=== PATIENT | female | born 1975 | race Caucasian/White ===

== ENCOUNTER 2020-06-22 13:06 | Inpatient (IN) | payer SELFPAY ==
[2020-06-22 13:22] VITALS: BP 105/59; PULSE 91; RESP 18; TEMP 36.4; O2SAT 99; BMI 20.5
[2020-06-22 15:54] LABS: Add Urine Microscopic? NO
[2020-06-22 16:25] LABS: Bilirubin Urine Neg (Negative); Blood Urine Neg (Negative); Glucose Urine UA Norm (Normal); Ketones Urine Negative (Negative); Leukocyte Esterase Urine Negative (Negative); Nitrate Urine Negative (Negative); Protein Urine Neg (Negative); Specific Gravity, Urine 1.005 (1.005-1.030); Urine Appearance Clear (CLEAR); Urine Color Yellow (Yellow); Urobilinogen Urine Norm (Negative)
[2020-06-22 16:50] LABS: HCG Qualitative Urine. Negative (Negative)
[2020-06-22 16:56] LABS: Amphetamines Screen Urine Positive (Negative); Barbiturates Screen Urine Negative (Negative); Benzodiazepines Screen Urine Negative (Negative); Cocaine Screen Urine Negative (Negative); Opiate Screen Urine Negative (Negative); PCP Screen Urine Negative (Negative); THC Screen Urine Positive (Negative)
[2020-06-22 17:29] VITALS: RESP 17
[2020-06-22 18:10] LABS: Basophils # 0.1 10^3/uL (0.0-0.1); Basophils % 1.9 %; Eosinophils # 0.3 10^3/uL (0.0-0.8); Eosinophils % 4.3 %; Hematocrit 33.4 % (37.0-47.0); Lymphocytes # 2.5 10^3/uL (0.8-4.8); Lymphocytes % 34.1 %; Mean Corpuscular HGB Conc 29.9 g/dL (30.0-36.0); Mean Corpuscular Hemoglobin 20.1 pg (28.0-34.0); Mean Corpuscular Volume 67.1 fL (81-99); Mean Platelet Volume 11.7 fL (7.4-10.4); Monocytes # 0.5 10^3/uL (0.2-0.9); Neutrophils # 3.77 10^3/uL (1.8-7.7); Neutrophils % 52.6 %; Nucleated Red Blood Cells % 0.3 %; Platelet Count 407 10^3/cmm (130-400); Red Blood Count 4.98 10^6/uL (4.1-5.3); Red Cell Distribution Width 17.1 % (12.1-15.1); White Blood Count 7.2 10^3/uL (4.0-10.0)
[2020-06-22 18:45] LABS: Slide Review Slide Review Perform
[2020-06-22 19:06] VITALS: RESP 18
[2020-06-22 19:10] LABS: Alanine Aminotransferase 11 U/L (0-33); Albumin Level 3.9 g/dL (3.5-5.2); Alkaline Phosphatase 94 IU/L (35-105); Anion Gap 13.6 (5-19); Aspartate Amino Transferase 12 U/L (0-32); Blood Urea Nitrogen 9 mg/dL (6-20); Carbon Dioxide 25 mmol/L (22-29); Chloride 103 mmol/L (98-107); Globulin 2.1 g/dL (1.3-4.6); Glomerular Filtration Rate 134.7 mL/min (90-130); Glucose 102 mg/dL (65-115); Osmolality Calculated 285 mOsm/kg (285-295); Potassium 3.6 mmol/L (3.5-5.1); Sodium 138 mmol/L (136-145); Thyroid Stimulating Hormone 0.82 uIU/mL (0.27-4.20); Total Bilirubin 0.4 mg/dL (0.15-1.2)
[2020-06-22 19:35] LABS: Acetaminophen < 5.0 ug/mL (10-30); Alcohol Level < 10 mg/dL (0-10); Salicylate < 0.3 mg/dL (3-10)
[2020-06-22 20:00] VITALS: BP 106/69; PULSE 71; RESP 16; O2SAT 99
[2020-06-22 20:55] VITALS: BP 106/69; O2SAT 97
[2020-06-22 21:42] VITALS: BP 113/76; PULSE 79; RESP 18; TEMP 36.9; O2SAT 97
[2020-06-22] MEDS: pneumococcal (23 valent) SDV 0.5 mL IM (21:43)
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
[2020-06-22] MEDS: acetaminophen 325 mg Tablet 650 MG PO (21:48)
[2020-06-22] MEDS: nicotine 2 mg Gum BUCCAL (21:48)
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
--- NOTE | 2020-06-23 04:08 | PC.NURSE ---
flu vaccine given FluvaxQuad 60mcg/0.5ml given in right deltoid IM lot number [id number] exp 02/01/21
--- NOTE | 2020-06-23 04:10 | PC.NURSE ---
Pneumonia vaccine given [id number] injection 0.5ml given IM Left Deltoid Lot number [id number]
[2020-06-23 06:00] VITALS: BP 112/70; PULSE 65; RESP 16; TEMP 36.8; O2SAT 96
[2020-06-23 14:00] VITALS: BP 93/64; PULSE 74; RESP 18; TEMP 37.1; O2SAT 97
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
[2020-06-23 20:09] VITALS: BP 85/49; PULSE 66; RESP 17; TEMP 36.5; O2SAT 97
[2020-06-24 06:00] VITALS: BP 105/68; PULSE 62; RESP 16; TEMP 36.9; O2SAT 96
[2020-06-24] MEDS: sertraline 50 mg Tablet PO (09:44)
[2020-06-24 13:35] VITALS: BP 104/65; PULSE 70; RESP 18; TEMP 37.1; O2SAT 97
[2020-06-24 22:00] VITALS: BP 101/67; PULSE 85; RESP 18; TEMP 36.4; O2SAT 96
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
[2020-06-25 06:00] VITALS: BP 115/59; PULSE 83; RESP 17; TEMP 36.9; O2SAT 96
[2020-06-25] MEDS: sertraline 50 mg Tablet PO (08:07)
[2020-06-25] MEDS: nicotine 2 mg Gum BUCCAL ×2 (13:15→15:17)
[2020-06-25 13:30] VITALS: BP 112/71; PULSE 96; RESP 18; TEMP 37.1
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
[2020-06-25 20:59] VITALS: BP 116/76; PULSE 83; RESP 18; TEMP 37.1; O2SAT 97
[2020-06-26 06:00] VITALS: BP 108/75; PULSE 76; RESP 17; TEMP 37; O2SAT 96
[2020-06-26] MEDS: acetaminophen 325 mg Tablet 650 MG PO (08:20)
[2020-06-26] MEDS: sertraline 50 mg Tablet PO (08:20)
[2020-06-26 13:34] VITALS: BP 103/66; PULSE 84; RESP 18; TEMP 37.1; O2SAT 96
--- NOTE | 2020-06-26 14:14 | PM.NPN ---
Subjective NPU Subjective: Interval history: Karen presented today reporting that she is feeling a little better. We discussed the risk benefits and alternatives of increasing her Zoloft 200 mg p.o. every morning in the morning. Additionally she did fill out the paperwork for [facility] and we discussed working with the treatment team in the morning to look at getting her an interview and hopefully getting her up there at the beginning of the week. She reports she is eating okay and sleeping better. Mental Status Exam MSE Comments: This is an underweight white female with limited dress, grooming and eye contact. No abnormal movements except for resolving mild psychomotor retardation. Mostly cooperative with exam in no acute distress. Speech was more normal rate and volume. Mood described as better, affect congruent. Thought process organized. Thought content: Patient denied any suicidal or homicidal ideation, delusions reported or noted, she denied any auditory or visual hallucinations. Attention and concentration were intact and memory appeared reliable but none were formally tested. She is alert and oriented x3. Insight and judgment are fair, but improving, impulse control is limited, but improving. Vitals/I&O/Wt Last Vital Signs Temp 98.6 F 06/26/20 05:29 Pulse 76 06/26/20 05:29 Resp 17 06/26/20 05:29 BP 108/78 06/26/20 05:29 Pulse Ox 96 06/26/20 05:29 Weight last 48 hrs Weight 54.431 kg Data NPU : 06/22/20 17:58 06/22/20 17:58 A&P Additional A&P Information (1) Polysubstance abuse: (2) Depression: (3) PTSD (post-traumatic stress disorder): (4) Anxiety: This is a 45-year-old white female with a long history of trauma, active addiction, depression and anxiety who presents off medication with recent traumatic events. 1. Continue current medication. 2. Continue every 15 minute checks for safety. 3. Encourage individual, group and milieu therapy. 4. Encourage follow-up at a sober living treatment provider at the highest level of care to which she will commit. Involuntary Hold Information 96 Hour Hold: 96 Hour Involuntary Admission: No Attestations NPU Medical Necessity Statement*: Inpatient hospitalization is medically necessary and the clinically appropriate intervention at this time. We will initiate medication/monitor medications and make changes as indicated. Likely length of stay 1-3 days. Coding Level of Care Code Acute Vat Tender for Chg Jr
[2020-06-26] MEDS: nicotine 2 mg Gum BUCCAL ×2 (15:30→18:10)
[2020-06-26 19:52] VITALS: BP 117/71; PULSE 67; RESP 17; TEMP 37.1; O2SAT 99
[2020-06-26] MEDS: trazodone 50 mg Tablet PO (20:03)
[2020-06-26] MEDS: hyDROXYzine 25 mg Capsule 50 MG PO (20:03)
[2020-06-27 05:29] VITALS: BP 108/67; PULSE 77; RESP 16; TEMP 37.2; O2SAT 97
[2020-06-27] MEDS: sertraline 100 mg Tablet PO (08:28)
--- NOTE | 2020-06-27 09:47 | PM.NPN ---
Subjective NPU Subjective: Interval history: Patient reports that she is doing well and wants to go home. She complained of excessive sedation in the morning most likely due to her trazodone at bedtime. She is awaiting word on whether she has a place at a [facility]. She has arranged for transportation from her father. Mental Status Exam MSE Comments: This is an underweight white female with limited dress, grooming and eye contact. No abnormal movements except for resolving mild psychomotor retardation. Mostly cooperative with exam in no acute distress. Speech was normal rate and volume. Mood described as better, affect congruent. Thought process organized. Thought content: Patient denied any suicidal or homicidal ideation, delusions reported or noted, she denied any auditory or visual hallucinations. Attention and concentration were intact and memory appeared reliable but none were formally tested. She is alert and oriented x3. Insight and judgment are adequate for safety, impulse control is improved. Cognition: Patient Appearance: Appropriate Level of Consciousness: Awake, Alert, Appropriate and Follows Commands Patient Cognition Impaired: No Ability to Follow Directions: Excellent Patient Orientation (long list): Person, Place, Time and Name Comprehension Ability: No Impairment Hallucination Type: None Delusion Description: Not Present Thought Process: Appropriate Affect: Affect Description: Calm Behavior: Patient Behavior: Cooperative Speech Pattern: Clear Vitals/I&O/Wt Last Vital Signs Temp 98.9 F 06/27/20 05:29 Pulse 77 06/27/20 05:29 Resp 16 06/27/20 05:29 BP 108/67 06/27/20 05:29 Pulse Ox 97 06/27/20 05:29 Weight last 48 hrs Weight 54.431 kg Data NPU : 06/22/20 17:58 06/22/20 17:58 A&P Assessment and plan (1) Polysubstance abuse: Status: Chronic (2) Depression: Status: Acute Qualifiers: Depression Type: unspecified Qualified Code(s): F32.9 - Major depressive disorder, single episode, unspecified (3) PTSD (post-traumatic stress disorder): Status: Chronic (4) Anxiety: Status: Chronic Additional A&P Information (1) Polysubstance abuse: (2) Depression: (3) PTSD (post-traumatic stress disorder): (4) Anxiety: This is a 45-year-old white female with a long history of trauma, active addiction, depression and anxiety who presents off medication with recent traumatic events. 1. Continue current medication. Trazodone will be administered earlier in the evening to reduce daytime sedation. 2. Continue every 15 minute checks for safety. 3. Encourage individual, group and milieu therapy. 4. Encourage follow-up at a sober living treatment provider at the highest level of care to which she will commit. Involuntary Hold Information 96 Hour Hold: 96 Hour Involuntary Admission: No Attestations NPU Medical Necessity Statement*: Patient will remain in the hospital another 2-4 nights for assessment of medication efficacy and tolerability. Coding Level of Care Code Acute Certified Income Tax Preparer for g Fwd Diagnoses Polysubstance abuse F19.10 Depression F32.9 Depression Type: unspecified PTSD (post-traumatic stress disorder) F43.10 Anxiety F41.9
[2020-06-27] MEDS: nicotine 2 mg Gum BUCCAL ×4 (10:59→18:12)
[2020-06-27 14:00] VITALS: BP 113/72; PULSE 80; RESP 20; TEMP 36.9; O2SAT 96
[2020-06-27] MEDS: trazodone 50 mg Tablet PO (17:51)
[2020-06-27] MEDS: hyDROXYzine 25 mg Capsule 50 MG PO (19:27)
[2020-06-27 19:34] VITALS: BP 106/68; PULSE 91; RESP 17; TEMP 36.9; O2SAT 99
--- NOTE | 2020-06-27 19:38 | PC.NURSE ---
The patient said she has anxiety tonight she rates at 7 on a 10 high scale. She is requesting prn Vistaril to treat the symptoms.
[2020-06-28 06:00] VITALS: BP 103/65; PULSE 68; RESP 15; TEMP 36.4; O2SAT 97
[2020-06-28] MEDS: sertraline 100 mg Tablet PO (08:21)
[2020-06-28] MEDS: nicotine 2 mg Gum BUCCAL ×2 (09:13→11:56)
--- NOTE | 2020-06-28 11:45 | P.PN_ITS ---
Subjective NPU Subjective: Interval history: Patient is now established a plan to go to a rehabilitation facility that requires preadmission laboratories including a tuberculosis test that will take 3 days. She is okay with that. Her main complaint is 1 of nicotine withdrawal. We discussed her history of being treated with naltrexone. We also discussed her history of being treated for depression. She revealed that she has had multiple seizures in the past. The hospital record does not reflect that. However until that is cleared up we cannot initiate treatment with Wellbutrin. Mental Status Exam MSE Comments: Discharge Mental Status Exam: Appearance: hygiene is good; no gross neurological deficits., gait is unremarkable; AIMS=0 Speech: Speech is of normal rate and rhythm and easily understood. Thought processes: Thought processes are abstract. Judgment is adequate for safety. Associations: intact Psychotic processes: There is no indication of guarding or paranoia. There is no attention to the internal stimuli. Auditory and visual hallucinations are denied. Judgment: Insight is fair. Problem solving skills are adequate for safety. Orientation: The patient is oriented to person, place time and situation. Memory: no deficits noted in immediate, intermediate, or remote spheres. Attention: The patient is alert and interpersonally engaged. Language: Verbalizations are coherent. Fund of knowledge: Fund of knowledge is adequate. Affect/Mood: Affect is consistent with a euthymic mood. denied suicidal ideation Affective range is appropriate. Psychosis: perception unimpaired except through cognitive distortion; reality testing intact. Cognition: Patient Appearance: Appropriate Level of Consciousness: Awake, Alert, Appropriate and Follows Commands Patient Cognition Impaired: No Ability to Follow Directions: Excellent Patient Orientation (long list): Person, Place, Time and Name Comprehension Ability: No Impairment Hallucination Type: None Delusion Description: Not Present Thought Process: Appropriate Affect: Affect Description: Appropriate and Calm Behavior: Patient Behavior: Appropriate and Cooperative Speech Pattern: Appropriate and Clear Vitals/I&O/Wt Last Vital Signs Temp 97.6 F 06/28/20 06:00 Pulse 68 06/28/20 06:00 Resp 15 06/28/20 06:00 BP 103/65 06/28/20 06:00 Pulse Ox 97 06/28/20 06:00 06/27/20 06/28/20 06/28/20 22:59 06:59 14:59 Intake Total 240 / 240 Balance 240 / 240 Data NPU : 06/22/20 17:58 06/22/20 17:58 A&P Assessment and plan (1) Polysubstance abuse: Status: Chronic (2) Depression: Status: Acute Qualifiers: Depression Type: unspecified Qualified Code(s): F32.9 - Major depressive disorder, single episode, unspecified (3) PTSD (post-traumatic stress disorder): Status: Chronic (4) Anxiety: Status: Chronic Additional A&P Information (1) Polysubstance abuse: (2) Depression: (3) PTSD (post-traumatic stress disorder): (4) Anxiety: This is a 45-year-old white female with a long history of trauma, active addiction, depression and anxiety who presents off medication with recent traumatic events. 1. Continue current medication. Trazodone will be administered earlier in the evening to reduce daytime sedation. 2. Continue every 15 minute checks for safety. 3. Encourage individual, group and milieu therapy. 4. Encourage follow-up at a sober living treatment provider at the highest level of care to which she will commit. Hospital day #6:Patient is now established a plan to go to a rehabilitation facility that requires preadmission laboratories including a tuberculosis test that will take 3 days. She is okay with that. Her main complaint is 1 of nicotine withdrawal. We discussed her history of being treated with naltrexone. We also discussed her history of being treated for depression. She revealed that she has had multiple seizures in the past. The hospital record does not reflect that. However until that is cleared up we cannot initiate treatment with Wellbutrin. Plan: Will restart nicotine patches. We will also initiate naltrexone 50 mg daily for craving both for the nicotine and her substance use. We will also initiate Lamictal 25 mg daily that may provide assistance both in the depression, mood stabilization, and her history of seizures. Laboratories ordered included TB skin test, hepatitis panel, sexually transmitted disease panel and HIV test. Involuntary Hold Information 96 Hour Hold: 96 Hour Involuntary Admission: No Attestations NPU Medical Necessity Statement*: Patient will remain in the hospital another 2-4 nights for assessment of medication efficacy and tolerability. Coding Level of Care Code Acute Marble Ceiling Installer for Kaitlynn Norris Diagnoses Polysubstance abuse F19.10 Depression F32.9 Depression Type: unspecified PTSD (post-traumatic stress disorder) F43.10 Anxiety F41.9
[2020-06-28] MEDS: naltrexone hcl 50 mg Tablet PO (11:56)
[2020-06-28] MEDS: lamoTRIgine 25 mg Tablet PO (11:56)
[2020-06-28] MEDS: nicotine 21 mg Patch 1 PATCH TRANSDERMA (13:43)
[2020-06-28 14:00] VITALS: BP 121/76; PULSE 85; RESP 20; TEMP 36.9; O2SAT 97
[2020-06-28 15:23] LABS: Rapid Plasma Reagin Syphilis Nonreactive (Nonreactive)
[2020-06-28 15:34] LABS: HIV 1 & 2 Antibody Non-Reactive (Non-Reactiv); HIV 1 & 2 Antigen Non-Reactive (Non-Reactiv)
[2020-06-28 15:35] LABS: Hepatitis A Antibody IgM Non-Reactive (Nonreactive); Hepatitis B Core AB, Total Non-Reactive (Nonreactive); Hepatitis B Surface AB 5.5 (0-8.5); Hepatitis B Surface Antigen Non-Reactive (Nonreactive); Hepatitis C Virus Antibody Non-Reactive (Nonreactive)
[2020-06-28] MEDS: acetaminophen 325 mg Tablet 650 MG PO (19:10)
--- NOTE | 2020-06-28 19:35 | PC.NURSE ---
The patient reported having anxiety with intensity at 8 on a 10 high scale. The patient appeared somewhat worried. she requested Vistaril to help reduce the anxiety.
[2020-06-28] MEDS: hyDROXYzine 25 mg Capsule 50 MG PO (20:17)
[2020-06-28] MEDS: trazodone 50 mg Tablet PO (20:17)
[2020-06-28 22:00] VITALS: BP 119/79; PULSE 89; RESP 18; TEMP 36.9; O2SAT 96
--- NOTE | 2020-06-28 22:45 | PC.NURSE ---
side effect Revia/Lamictal Pt reports feeling as if her heart was racing about 30 minutes of receiving her first dose of revia and lamictal this afternoon. She did state that if that happened again she would consult the nurse on duty. She is not symptomatic at this time.
--- NOTE | 2020-06-29 00:29 | PC.NURSE ---
luisana peraza Pt requested to shave and has permission to do so using an electric razor under supervision. She declined to use it tonight but would like to shave in the morning.
--- NOTE | 2020-06-29 00:54 | PC.NURSE ---
REMOVED NICOTINE PATCH @2100
[2020-06-29 06:00] VITALS: BP 104/64; PULSE 82; RESP 15; TEMP 37; O2SAT 96
[2020-06-29] MEDS: sertraline 100 mg Tablet PO (09:24)
[2020-06-29] MEDS: lamoTRIgine 25 mg Tablet PO (09:24)
[2020-06-29] MEDS: naltrexone hcl 50 mg Tablet PO (09:24)
[2020-06-29] MEDS: nicotine 21 mg Patch 1 PATCH TRANSDERMA (10:04)
--- NOTE | 2020-06-29 10:07 | PM.NPN ---
Subjective NPU Subjective: Interval history: Patient reports that she slept better last night with the addition of trazodone. She has not had an adverse reaction to the naltrexone. She is back on the nicotine patch and that is less of a problem. She however is impatient about her determination of placement and is threatening to leave AGAINST MEDICAL ADVICE. . Mental Status Exam MSE Comments: Discharge Mental Status Exam: Appearance: hygiene is good; no gross neurological deficits., gait is unremarkable; AIMS=0 Speech: Speech is of normal rate and rhythm and easily understood. Thought processes: Thought processes are abstract. Judgment is adequate for safety. Associations: intact Psychotic processes: There is no indication of guarding or paranoia. There is no attention to the internal stimuli. Auditory and visual hallucinations are denied. Judgment: Insight is fair. Problem solving skills are adequate for safety. Orientation: The patient is oriented to person, place time and situation. Memory: no deficits noted in immediate, intermediate, or remote spheres. Attention: The patient is alert and interpersonally engaged. Language: Verbalizations are coherent. Fund of knowledge: Fund of knowledge is adequate. Affect/Mood: Affect is consistent with a euthymic mood. denied suicidal ideation Affective range is appropriate. Psychosis: perception unimpaired except through cognitive distortion; reality testing intact. Cognition: Patient Appearance: Appropriate Level of Consciousness: Awake, Alert, Appropriate and Follows Commands Patient Cognition Impaired: No Ability to Follow Directions: Excellent Patient Orientation (long list): Person, Place, Time and Name Comprehension Ability: No Impairment Hallucination Type: None Delusion Description: Not Present Thought Process: Appropriate Affect: Affect Description: Appropriate Behavior: Patient Behavior: Appropriate Speech Pattern: Appropriate Vitals/I&O/Wt Last Vital Signs Temp 98.6 F 06/29/20 06:00 Pulse 82 06/29/20 06:00 Resp 15 06/29/20 06:00 BP 104/64 06/29/20 06:00 Pulse Ox 96 06/29/20 06:00 06/28/20 06/29/20 06/29/20 22:59 06:59 14:59 Intake Total 240 / 600 240 / 240 Balance 240 / 600 240 / 240 Data NPU : 06/22/20 17:58 06/22/20 17:58 A&P Assessment and plan (1) Polysubstance abuse: Status: Chronic (2) Depression: Status: Acute Qualifiers: Depression Type: unspecified Qualified Code(s): F32.9 - Major depressive disorder, single episode, unspecified (3) PTSD (post-traumatic stress disorder): Status: Chronic (4) Anxiety: Status: Chronic Additional A&P Information (1) Polysubstance abuse: (2) Depression: (3) PTSD (post-traumatic stress disorder): (4) Anxiety: This is a 45-year-old white female with a long history of trauma, active addiction, depression and anxiety who presents off medication with recent traumatic events. 1. Continue current medication. Trazodone will be administered earlier in the evening to reduce daytime sedation. 2. Continue every 15 minute checks for safety. 3. Encourage individual, group and milieu therapy. 4. Encourage follow-up at a sober living treatment provider at the highest level of care to which she will commit. Hospital day #6:Patient is now established a plan to go to a rehabilitation facility that requires preadmission laboratories including a tuberculosis test that will take 3 days. She is okay with that. Her main complaint is 1 of nicotine withdrawal. We discussed her history of being treated with naltrexone. We also discussed her history of being treated for depression. She revealed that she has had multiple seizures in the past. The hospital record does not reflect that. However until that is cleared up we cannot initiate treatment with Wellbutrin. Plan: Will restart nicotine patches. We will also initiate naltrexone 50 mg daily for craving both for the nicotine and her substance use. We will also initiate Lamictal 25 mg daily that may provide assistance both in the depression, mood stabilization, and her history of seizures. Laboratories ordered included TB skin test, hepatitis panel, sexually transmitted disease panel and HIV test. Hospital day #7: Patient is not an imminent risk to self or others. She is tolerated initiation of naltrexone. Laboratory Tests 06/28/20 06/28/20 06/28/20 10:28 10:28 10:28 RPR Nonreactive Hepatitis A IgM Ab Non-reactive Hep Bs Antigen Non-reactive Hep Bs Antibody 5.5 Hep B Core Total Ab Non-reactive Hepatitis C Antibody Non-reactive Herpes Simplex Source HIV 1&2 Ab & HIV 1 Ag Non-reactive HIV 1&2 Antibody Non-reactive TB (QFT) Gold In Tube 06/28/20 06/28/20 10:28 16:42 RPR Hepatitis A IgM Ab Hep Bs Antigen Hep Bs Antibody Hep B Core Total Ab Hepatitis C Antibody Herpes Simplex Source Pending HIV 1&2 Ab & HIV 1 Ag HIV 1&2 Antibody TB (QFT) Gold In Tube Pending Plan: Awaiting placement at the extended rehab program. Should the patient decide to leave AGAINST MEDICAL ADVICE, she is permitted to make that decision. Involuntary Hold Information 96 Hour Hold: 96 Hour Involuntary Admission: No Attestations NPU Medical Necessity Statement*: Patient will remain in the hospital another 2-4 nights for assessment of medication efficacy and tolerability. Coding Level of Care Code Acute Solid Waste Disposal Manager for g Fwd Diagnoses Polysubstance abuse F19.10 Depression F32.9 Depression Type: unspecified PTSD (post-traumatic stress disorder) F43.10 Anxiety F41.9
[2020-06-29 10:28] LABS: Hepatitis A Antibody Total REACTIVE (NON-REACTIVE)
[2020-06-29 10:48] VITALS: BP 104/64; PULSE 82; RESP 15; TEMP 37; O2SAT 96
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
[2020-07-01 11:58] LABS: Quantiferon Mitogen 9.43 IU/mL; Quantiferon Nil 0.08 IU/mL; Quantiferon Plus TB1 0.03 IU/mL; Quantiferon Plus TB2 0.03 IU/mL; Quantiferon TB Gold NEGATIVE (NEGATIVE)
[2020-07-03 14:43] LABS: HSV 1 DNA NOT DETECTED; HSV 2 DNA NOT DETECTED; HSV Source SERUM
== END 2020-06-29 14:34 | disposition left against medical advice (07) | DRG 881 ==
LOC: ER 13:33 → NP 20:28
PROVIDERS: Psychiatry & Neurology Psychiatry; Admitting Provider Psychiatry & Neurology Psychiatry; Emergency Provider Family Medicine; Visit Provider Psychiatry & Neurology Psychiatry
DX: F32.9 Major depressive disorder, single episode, unspecified (principal); F15.10 Other stimulant abuse, uncomplicated; F43.12 Post-traumatic stress disorder, chronic; F41.9 Anxiety disorder, unspecified; Z53.29 Procedure and treatment not carried out because of patient's decision for other reasons
CPT/HCPCS: 12345; 36415; 80053; 80306; 80307; 81003; 81025; 84443; 85025; 86480; 86592; 86705; 86706; 86708; 86709; 86803; 87340; 87491; 87530; 87591; 87806; 90471; 90686; 90732; 99284

== ENCOUNTER 2020-07-03 05:24 | Emergency (ER) | payer MEDICAID, SELFPAY ==
[2020-07-03 05:25] VITALS: BP 111/77; PULSE 79; RESP 16; TEMP 36.8; O2SAT 97; BMI 22.3
--- NOTE | 2020-07-03 05:29 | W.ED.GENADLT ---
Documented by User: Ladarius Poe MD 07/03/20 05:54 HPI - General Adult General: Chief complaint: General Medical Stated complaint: MEDICAL SCREENING Time Seen by Provider: 07/03/20 05:28 Source: patient and EMS Mode of arrival: EMS History of Present Illness: HPI narrative: 45-year-old female who is a history of drug use. Patient boyfriend called EMS tonight and EMS states that they were in an argument when they arrived. She is not given the much history. She states to me she just does not feel well and has felt nauseated. She appears under the influence of alcohol or drugs at this time. She denies any suicidal homicidal ideations. Denies any fever or pain. Associated symptoms: Reports nausea; Deny chest pain, dyspnea, headache(s) or rash Review of Systems Const: Denies: fever(s), chills, body aches or change in appetite Eyes: Denies: blurry vision or eye discomfort ENMT: Denies: throat pain or dental pain Card: Denies: chest pain Resp: Denies: dyspnea GI: Reports: nausea : Denies: dysuria Musc: Denies: neck pain or back pain Skin/Breast: Denies: rash Neuro: Denies: headache(s) Psych: Denies: depression Todd/Lymph: Denies: easy bruising All/Imm: Denies: urticaria Physical Exam Const: COMMON NORMALS: no acute distress and patient oriented x3 GENERAL APPEARANCE: disheveled HENMT: COMMON NORMALS: normocephalic and atraumatic HEAD & SCALP: normocephalic and atraumatic Eye: COMMON NORMALS: Equal, round and reactive pupils present and EOMs intact bilaterally PUPIL: Yes Equal, round and reactive pupils present Neck/C-Spine: COMMON NORMALS: full ROM and supple Chest: COMMONS NORMALS: normal inspection of the chest and normal palpation of entire chest wall Resp: COMMON NORMALS: normal respiratory effort, No retractions, No use of accessory muscles and clear to auscultation bilaterally AUSCULTATION: clear to auscultation bilaterally Cardio: COMMON NORMALS: regular rate, regular rhythm and No murmurs present (Cardio) RATE: regular rate RHYTHM: regular rhythm GI: COMMON NORMALS: Normal to inspection, nondistended, normoactive bowel sounds present, Soft to palpation, non-tender and no masses PALPATION: Yes Soft to palpation Extremity: COMMON NORMALS: normal to inspection and full ROM Neuro: COMMON NORMALS: patient oriented x3, moves all extremities and no focal motor deficits Psych: COMMON NORMALS: mental status grossly normal, Normal thought process present and cooperative ATTITUDE: Yes bizarre THOUGHT PROCESS: Normal thought process present Skin: COMMON NORMALS: no rashes or lesions noted and no wounds GENERAL SKIN EXAM: no rashes or lesions noted Course Vital Signs: Vital signs: Vital Signs Temperature 98.2 F 07/03/20 05:25 Pulse Rate 76 07/03/20 06:22 Respiratory Rate 18 07/03/20 06:22 Blood Pressure 116/78 07/03/20 06:22 Pulse Oximetry 96 07/03/20 06:22 MDM - General Adult MDM Narrative: Medical decision making narrative: Patient presents here with complaints of nausea at this time. Full history is difficult from patient she states she just does not feel well and feels nauseous. Will check blood work I believe she is likely under the influence of drugs. Patient is suicidal homicidal. Patient's care turned over to Dr. Ruelas at this time. Lab Data: Labs: Lab Results 07/03/20 07/03/20 07/03/20 Range/Units 05:50 05:50 05:50 WBC 5.9 (4.0-10.0) 10^3/ uL RBC 5.14 (4.1-5.3) 10^6/u L Hgb 10.3 L (11.5-15.3) g/dL Hct 34.2 L (37.0-47.0) % MCV 66.5 L (81-99) fL MCH 20.0 L (28.0-34.0) pg MCHC 30.1 (30.0-36.0) g/dL RDW 17.6 H (12.1-15.1) % Plt Count 507 H (130-400) 10^3/c mm MPV 11.4 H (7.4-10.4) fL Neut % (Auto) 60.0 % Lymph % (Auto) 23.1 % Walsh % (Auto) 8.3 % Eos % (Auto) 6.5 % Baso % (Auto) 1.9 % Neut # (Auto) 3.53 (1.8-7.7) 10^3/u L Lymph # (Auto) 1.4 (0.8-4.8) 10^3/u L Walsh # (Auto) 0.5 (0.2-0.9) 10^3/u L Eos # (Auto) 0.4 (0.0-0.8) 10^3/u L Baso # (Auto) 0.1 (0.0-0.1) 10^3/u L Nucleated RBC % (a uto) 0.5 % Nucleated RBCs # 0.0 /100WBC Sodium 138 (136-145) mmol/L Potassium 4.1 (3.5-5.1) mmol/L Chloride 106 (98-107) mmol/L Carbon Dioxide 23 (22-29) mmol/L Anion Gap 13.1 (5-19) BUN 9 (6-20) mg/dL Creatinine 0.4 L (0.5-0.9) mg/dL GFR Calculation 174.2 H (90-130) mL/min Glucose 101 (65-115) mg/dL Calculated Osmolal ity 285 (285-295) mOsm/k g Calcium 9.1 (8.5-10.5) mg/dL Magnesium (1.7-2.3) mg/dL Total Bilirubin 0.7 (0.15-1.2) mg/dL AST 22 (0-32) U/L ALT 107 H (0-33) U/L Alkaline Phosphata se 121 H (35-105) IU/L Creatine Kinase 82 (26-192) U/L Total Protein 6.6 (6.6-8.7) g/dL Albumin 4.2 (3.5-5.2) g/dL Globulin 2.4 (1.3-4.6) g/dL Lipase 66 H (13-60) U/L HCG, Qual (Negative) Urine Color (Yellow) Urine Appearance (CLEAR) Urine pH (5-7) Ur Specific Gravit y (1.005-1.030) Urine Protein (Negative) Urine Glucose (UA) (Normal) Urine Ketones (Negative) Urine Blood (Negative) Urine Nitrate (Negative) Urine Bilirubin (Negative) Urine Urobilinogen (Negative) mg/dL Ur Leukocyte Adele ase (Negative) Salicylates < 0.3 L (3-10) mg/dL Urine Opiates Scre en (Negative) ng/mL Acetaminophen < 5.0 L (10-30) ug/mL Ur Barbiturates Sc reen (Negative) ng/mL Ur Phencyclidine S crn (Negative) ng/mL Ur Amphetamines Sc reen (Negative) ng/mL U Benzodiazepines Scrn (Negative) ng/mL Urine Cocaine Scre en (Negative) ng/mL U Marijuana (THC) Screen (Negative) ng/mL Ethyl Alcohol < 10 (0-10) mg/dL Influenza Type A A g (Negative) Influenza Type B A g (Negative) SARS-CoV-2 Ag (Rap id) (Negative) 07/03/20 07/03/20 07/03/20 Range/Units 05:50 05:50 06:37 WBC (4.0-10.0) 10^3/ uL RBC (4.1-5.3) 10^6/u L Hgb (11.5-15.3) g/dL Hct (37.0-47.0) % MCV (81-99) fL MCH (28.0-34.0) pg MCHC (30.0-36.0) g/dL RDW (12.1-15.1) % Plt Count (130-400) 10^3/c mm MPV (7.4-10.4) fL Neut % (Auto) % Lymph % (Auto) % Walsh % (Auto) % Eos % (Auto) % Baso % (Auto) % Neut # (Auto) (1.8-7.7) 10^3/u L Lymph # (Auto) (0.8-4.8) 10^3/u L Walsh # (Auto) (0.2-0.9) 10^3/u L Eos # (Auto) (0.0-0.8) 10^3/u L Baso # (Auto) (0.0-0.1) 10^3/u L Nucleated RBC % (a uto) % Nucleated RBCs # /100WBC Sodium (136-145) mmol/L Potassium (3.5-5.1) mmol/L Chloride (98-107) mmol/L Carbon Dioxide (22-29) mmol/L Anion Gap (5-19) BUN (6-20) mg/dL Creatinine (0.5-0.9) mg/dL GFR Calculation (90-130) mL/min Glucose (65-115) mg/dL Calculated Osmolal ity (285-295) mOsm/k g Calcium (8.5-10.5) mg/dL Magnesium 2.2 (1.7-2.3) mg/dL Total Bilirubin (0.15-1.2) mg/dL AST (0-32) U/L ALT (0-33) U/L Alkaline Phosphata se (35-105) IU/L Creatine Kinase (26-192) U/L Total Protein (6.6-8.7) g/dL Albumin (3.5-5.2) g/dL Globulin (1.3-4.6) g/dL Lipase (13-60) U/L HCG, Qual Negative (Negative) Urine Color (Yellow) Urine Appearance (CLEAR) Urine pH (5-7) Ur Specific Gravit y (1.005-1.030) Urine Protein (Negative) Urine Glucose (UA) (Normal) Urine Ketones (Negative) Urine Blood (Negative) Urine Nitrate (Negative) Urine Bilirubin (Negative) Urine Urobilinogen (Negative) mg/dL Ur Leukocyte Adele ase (Negative) Salicylates (3-10) mg/dL Urine Opiates Scre en (Negative) ng/mL Acetaminophen (10-30) ug/mL Ur Barbiturates Sc reen (Negative) ng/mL Ur Phencyclidine S crn (Negative) ng/mL Ur Amphetamines Sc reen (Negative) ng/mL U Benzodiazepines Scrn (Negative) ng/mL Urine Cocaine Scre en (Negative) ng/mL U Marijuana (THC) Screen (Negative) ng/mL Ethyl Alcohol (0-10) mg/dL Influenza Type A A g Negative (Negative) Influenza Type B A g Negative (Negative) SARS-CoV-2 Ag (Rap id) (Negative) 07/03/20 07/03/20 07/03/20 Range/Units 06:37 06:52 06:52 WBC (4.0-10.0) 10^3/ uL RBC (4.1-5.3) 10^6/u L Hgb (11.5-15.3) g/dL Hct (37.0-47.0) % MCV (81-99) fL MCH (28.0-34.0) pg MCHC (30.0-36.0) g/dL RDW (12.1-15.1) % Plt Count (130-400) 10^3/c mm MPV (7.4-10.4) fL Neut % (Auto) % Lymph % (Auto) % Walsh % (Auto) % Eos % (Auto) % Baso % (Auto) % Neut # (Auto) (1.8-7.7) 10^3/u L Lymph # (Auto) (0.8-4.8) 10^3/u L Walsh # (Auto) (0.2-0.9) 10^3/u L Eos # (Auto) (0.0-0.8) 10^3/u L Baso # (Auto) (0.0-0.1) 10^3/u L Nucleated RBC % (a uto) % Nucleated RBCs # /100WBC Sodium (136-145) mmol/L Potassium (3.5-5.1) mmol/L Chloride (98-107) mmol/L Carbon Dioxide (22-29) mmol/L Anion Gap (5-19) BUN (6-20) mg/dL Creatinine (0.5-0.9) mg/dL GFR Calculation (90-130) mL/min Glucose (65-115) mg/dL Calculated Osmolal ity (285-295) mOsm/k g Calcium (8.5-10.5) mg/dL Magnesium (1.7-2.3) mg/dL Total Bilirubin (0.15-1.2) mg/dL AST (0-32) U/L ALT (0-33) U/L Alkaline Phosphata se (35-105) IU/L Creatine Kinase (26-192) U/L Total Protein (6.6-8.7) g/dL Albumin (3.5-5.2) g/dL Globulin (1.3-4.6) g/dL Lipase (13-60) U/L HCG, Qual (Negative) Urine Color Yellow (Yellow) Urine Appearance Clear (CLEAR) Urine pH 5 (5-7) Ur Specific Gravit y 1.030 (1.005-1.030) Urine Protein Neg (Negative) Urine Glucose (UA) Norm (Normal) Urine Ketones Negative (Negative) Urine Blood Neg (Negative) Urine Nitrate Negative (Negative) Urine Bilirubin Neg (Negative) Urine Urobilinogen Norm (Negative) mg/dL Ur Leukocyte Adele ase Negative (Negative) Salicylates (3-10) mg/dL Urine Opiates Scre en Negative (Negative) ng/mL Acetaminophen (10-30) ug/mL Ur Barbiturates Sc reen Negative (Negative) ng/mL Ur Phencyclidine S crn Negative (Negative) ng/mL Ur Amphetamines Sc reen Positive H (Negative) ng/mL U Benzodiazepines Scrn Negative (Negative) ng/mL Urine Cocaine Scre en Negative (Negative) ng/mL U Marijuana (THC) Screen Positive H (Negative) ng/mL Ethyl Alcohol (0-10) mg/dL Influenza Type A A g (Negative) Influenza Type B A g (Negative) SARS-CoV-2 Ag (Rap id) Negative (Negative) Discharge Plan Discharge Patient Disposition: Home Clinical Impression: Acute viral syndrome Condition: Stable Prescriptions: No Action No Known Home Medications RF: 0 Discharge Orders: Discharge Order (Routine); Ordered 07/03/20 Ordered By: Bria Squires Referrals: Karthik Gilmore MD [Physician] - 1-3 days Discharge Diet: Advance as tolerated Discharge Activity: Increase activity as tolerated Patient Instructions: Viral Syndrome (ED) Activity Restrictions/Additional Instructions: Please return to the ER immediately for any of the signs or symptoms listed on your discharge instruction sheets, worsening/changing of your symptoms, you are not getting better as quickly as expected, or for ANY other cause or concerns. Sign Out Sign Out Data: Patient Sign Out occurred on 07/03/20 at 06:00. Patient's care was discussed, and care was transferred from to Bria Squires. Coding Level of Care Code ED In School Suspension Coordinator for Chg Fwd Exam Comprehensive Documented by User: Bria Squires 07/03/20 07:38 HPI - General Adult General: Chief complaint: General Medical Stated complaint: MEDICAL SCREENING Time Seen by Provider: 07/03/20 05:28 Course ED course: 0600 -Case turned over to me at change of shift from Dr. Poe. Please see his note for his history, physical exam medical decision-making notes. Patient denies any other complaints to me other than she states I do not feel well . When specifically asked if thorough review of systems she denies headache, neck pain, cough, sore throat, shortness of breath, abdominal pain, back pain, dysuria or extremity pain. This time the patient has a GCS of 15 and a normal physical exam. Vital signs have been stable. I will write the remainder of the work-up ordered by Dr. Poe. Vital Signs: Vital signs: Vital Signs Temperature 98.2 F 07/03/20 05:25 Pulse Rate 76 07/03/20 06:22 Respiratory Rate 18 07/03/20 06:22 Blood Pressure 116/78 07/03/20 06:22 Pulse Oximetry 96 07/03/20 06:22 MDM - General Adult MDM Narrative: Medical decision making narrative: 0733 - Karen is a nice 45-year-old female who comes in complaining of flulike symptoms. She states that she just hurts all over. Her testing was negative for any acute infectious process. She is declining any further evaluation and care. Patient is alert and oriented x3 with a GCS of 15. She denies any focal complaints other than generalized malaise and joint aches. I see no sign of sepsis. This time I do not see any severe risk of occult bacteremia. The patient at this time is refusing all further care as she wants to go outside to smoke as she is already called for a ride to come pick her up. I will go ahead and proceed with discharge for her. Lab Data: Labs: Lab Results 07/03/20 07/03/20 07/03/20 Range/Units 05:50 05:50 05:50 WBC 5.9 (4.0-10.0) 10^3/ uL RBC 5.14 (4.1-5.3) 10^6/u L Hgb 10.3 L (11.5-15.3) g/dL Hct 34.2 L (37.0-47.0) % MCV 66.5 L (81-99) fL MCH 20.0 L (28.0-34.0) pg MCHC 30.1 (30.0-36.0) g/dL RDW 17.6 H (12.1-15.1) % Plt Count 507 H (130-400) 10^3/c mm MPV 11.4 H (7.4-10.4) fL Neut % (Auto) 60.0 % Lymph % (Auto) 23.1 % Walsh % (Auto) 8.3 % Eos % (Auto) 6.5 % Baso % (Auto) 1.9 % Neut # (Auto) 3.53 (1.8-7.7) 10^3/u L Lymph # (Auto) 1.4 (0.8-4.8) 10^3/u L Walsh # (Auto) 0.5 (0.2-0.9) 10^3/u L Eos # (Auto) 0.4 (0.0-0.8) 10^3/u L Baso # (Auto) 0.1 (0.0-0.1) 10^3/u L Nucleated RBC % (a uto) 0.5 % Nucleated RBCs # 0.0 /100WBC Sodium 138 (136-145) mmol/L Potassium 4.1 (3.5-5.1) mmol/L Chloride 106 (98-107) mmol/L Carbon Dioxide 23 (22-29) mmol/L Anion Gap 13.1 (5-19) BUN 9 (6-20) mg/dL Creatinine 0.4 L (0.5-0.9) mg/dL GFR Calculation 174.2 H (90-130) mL/min Glucose 101 (65-115) mg/dL Calculated Osmolal ity 285 (285-295) mOsm/k g Calcium 9.1 (8.5-10.5) mg/dL Magnesium (1.7-2.3) mg/dL Total Bilirubin 0.7 (0.15-1.2) mg/dL AST 22 (0-32) U/L ALT 107 H (0-33) U/L Alkaline Phosphata se 121 H (35-105) IU/L Creatine Kinase 82 (26-192) U/L Total Protein 6.6 (6.6-8.7) g/dL Albumin 4.2 (3.5-5.2) g/dL Globulin 2.4 (1.3-4.6) g/dL Lipase 66 H (13-60) U/L HCG, Qual (Negative) Urine Color (Yellow) Urine Appearance (CLEAR) Urine pH (5-7) Ur Specific Gravit y (1.005-1.030) Urine Protein (Negative) Urine Glucose (UA) (Normal) Urine Ketones (Negative) Urine Blood (Negative) Urine Nitrate (Negative) Urine Bilirubin (Negative) Urine Urobilinogen (Negative) mg/dL Ur Leukocyte Adele ase (Negative) Salicylates < 0.3 L (3-10) mg/dL Urine Opiates Scre en (Negative) ng/mL Acetaminophen < 5.0 L (10-30) ug/mL Ur Barbiturates Sc reen (Negative) ng/mL Ur Phencyclidine S crn (Negative) ng/mL Ur Amphetamines Sc reen (Negative) ng/mL U Benzodiazepines Scrn (Negative) ng/mL Urine Cocaine Scre en (Negative) ng/mL U Marijuana (THC) Screen (Negative) ng/mL Ethyl Alcohol < 10 (0-10) mg/dL Influenza Type A A g (Negative) Influenza Type B A g (Negative) SARS-CoV-2 Ag (Rap id) (Negative) 07/03/20 07/03/20 07/03/20 Range/Units 05:50 05:50 06:37 WBC (4.0-10.0) 10^3/ uL RBC (4.1-5.3) 10^6/u L Hgb (11.5-15.3) g/dL Hct (37.0-47.0) % MCV (81-99) fL MCH (28.0-34.0) pg MCHC (30.0-36.0) g/dL RDW (12.1-15.1) % Plt Count (130-400) 10^3/c mm MPV (7.4-10.4) fL Neut % (Auto) % Lymph % (Auto) % Walsh % (Auto) % Eos % (Auto) % Baso % (Auto) % Neut # (Auto) (1.8-7.7) 10^3/u L Lymph # (Auto) (0.8-4.8) 10^3/u L Walsh # (Auto) (0.2-0.9) 10^3/u L Eos # (Auto) (0.0-0.8) 10^3/u L Baso # (Auto) (0.0-0.1) 10^3/u L Nucleated RBC % (a uto) % Nucleated RBCs # /100WBC Sodium (136-145) mmol/L Potassium (3.5-5.1) mmol/L Chloride (98-107) mmol/L Carbon Dioxide (22-29) mmol/L Anion Gap (5-19) BUN (6-20) mg/dL Creatinine (0.5-0.9) mg/dL GFR Calculation (90-130) mL/min Glucose (65-115) mg/dL Calculated Osmolal ity (285-295) mOsm/k g Calcium (8.5-10.5) mg/dL Magnesium 2.2 (1.7-2.3) mg/dL Total Bilirubin (0.15-1.2) mg/dL AST (0-32) U/L ALT (0-33) U/L Alkaline Phosphata se (35-105) IU/L Creatine Kinase (26-192) U/L Total Protein (6.6-8.7) g/dL Albumin (3.5-5.2) g/dL Globulin (1.3-4.6) g/dL Lipase (13-60) U/L HCG, Qual Negative (Negative) Urine Color (Yellow) Urine Appearance (CLEAR) Urine pH (5-7) Ur Specific Gravit y (1.005-1.030) Urine Protein (Negative) Urine Glucose (UA) (Normal) Urine Ketones (Negative) Urine Blood (Negative) Urine Nitrate (Negative) Urine Bilirubin (Negative) Urine Urobilinogen (Negative) mg/dL Ur Leukocyte Adele ase (Negative) Salicylates (3-10) mg/dL Urine Opiates Scre en (Negative) ng/mL Acetaminophen (10-30) ug/mL Ur Barbiturates Sc reen (Negative) ng/mL Ur Phencyclidine S crn (Negative) ng/mL Ur Amphetamines Sc reen (Negative) ng/mL U Benzodiazepines Scrn (Negative) ng/mL Urine Cocaine Scre en (Negative) ng/mL U Marijuana (THC) Screen (Negative) ng/mL Ethyl Alcohol (0-10) mg/dL Influenza Type A A g Negative (Negative) Influenza Type B A g Negative (Negative) SARS-CoV-2 Ag (Rap id) (Negative) 07/03/20 07/03/20 07/03/20 Range/Units 06:37 06:52 06:52 WBC (4.0-10.0) 10^3/ uL RBC (4.1-5.3) 10^6/u L Hgb (11.5-15.3) g/dL Hct (37.0-47.0) % MCV (81-99) fL MCH (28.0-34.0) pg MCHC (30.0-36.0) g/dL RDW (12.1-15.1) % Plt Count (130-400) 10^3/c mm MPV (7.4-10.4) fL Neut % (Auto) % Lymph % (Auto) % Walsh % (Auto) % Eos % (Auto) % Baso % (Auto) % Neut # (Auto) (1.8-7.7) 10^3/u L Lymph # (Auto) (0.8-4.8) 10^3/u L Walsh # (Auto) (0.2-0.9) 10^3/u L Eos # (Auto) (0.0-0.8) 10^3/u L Baso # (Auto) (0.0-0.1) 10^3/u L Nucleated RBC % (a uto) % Nucleated RBCs # /100WBC Sodium (136-145) mmol/L Potassium (3.5-5.1) mmol/L Chloride (98-107) mmol/L Carbon Dioxide (22-29) mmol/L Anion Gap (5-19) BUN (6-20) mg/dL Creatinine (0.5-0.9) mg/dL GFR Calculation (90-130) mL/min Glucose (65-115) mg/dL Calculated Osmolal ity (285-295) mOsm/k g Calcium (8.5-10.5) mg/dL Magnesium (1.7-2.3) mg/dL Total Bilirubin (0.15-1.2) mg/dL AST (0-32) U/L ALT (0-33) U/L Alkaline Phosphata se (35-105) IU/L Creatine Kinase (26-192) U/L Total Protein (6.6-8.7) g/dL Albumin (3.5-5.2) g/dL Globulin (1.3-4.6) g/dL Lipase (13-60) U/L HCG, Qual (Negative) Urine Color Yellow (Yellow) Urine Appearance Clear (CLEAR) Urine pH 5 (5-7) Ur Specific Gravit y 1.030 (1.005-1.030) Urine Protein Neg (Negative) Urine Glucose (UA) Norm (Normal) Urine Ketones Negative (Negative) Urine Blood Neg (Negative) Urine Nitrate Negative (Negative) Urine Bilirubin Neg (Negative) Urine Urobilinogen Norm (Negative) mg/dL Ur Leukocyte Adele ase Negative (Negative) Salicylates (3-10) mg/dL Urine Opiates Scre en Negative (Negative) ng/mL Acetaminophen (10-30) ug/mL Ur Barbiturates Sc reen Negative (Negative) ng/mL Ur Phencyclidine S crn Negative (Negative) ng/mL Ur Amphetamines Sc reen Positive H (Negative) ng/mL U Benzodiazepines Scrn Negative (Negative) ng/mL Urine Cocaine Scre en Negative (Negative) ng/mL U Marijuana (THC) Screen Positive H (Negative) ng/mL Ethyl Alcohol (0-10) mg/dL Influenza Type A A g (Negative) Influenza Type B A g (Negative) SARS-CoV-2 Ag (Rap id) Negative (Negative) Discharge Plan Discharge Patient Disposition: Home Clinical Impression: Acute viral syndrome Condition: Stable Prescriptions: No Action No Known Home Medications RF: 0 Discharge Orders: Discharge Order (Routine); Ordered 07/03/20 Ordered By: Bria Squires Referrals: Karthik Gilmore MD [Physician] - 1-3 days Discharge Diet: Advance as tolerated Discharge Activity: Increase activity as tolerated Patient Instructions: Viral Syndrome (ED) Activity Restrictions/Additional Instructions: Please return to the ER immediately for any of the signs or symptoms listed on your discharge instruction sheets, worsening/changing of your symptoms, you are not getting better as quickly as expected, or for ANY other cause or concerns. Sign Out Sign Out Data: Patient Sign Out occurred on 07/03/20 at 06:00. Patient's care was discussed, and care was transferred from to Bria Squires. Coding Level of Care Code ED In School Suspension Coordinator for Chg Fwd Exam Comprehensive
[2020-07-03] MEDS: ondansetron 2 mg/ML SDV 2 mL 4 MG IVP (05:52)
[2020-07-03] MEDS: sodium chloride 0.9% 1,000 ML 999 ML IV (05:53)
[2020-07-03 05:56] LABS: Basophils # 0.1 10^3/uL (0.0-0.1); Basophils % 1.9 %; Eosinophils # 0.4 10^3/uL (0.0-0.8); Eosinophils % 6.5 %; Hematocrit 34.2 % (37.0-47.0); Hemoglobin 10.3 g/dL (11.5-15.3); Lymphocytes # 1.4 10^3/uL (0.8-4.8); Lymphocytes % 23.1 %; Mean Corpuscular HGB Conc 30.1 g/dL (30.0-36.0); Mean Corpuscular Volume 66.5 fL (81-99); Mean Platelet Volume 11.4 fL (7.4-10.4); Monocytes # 0.5 10^3/uL (0.2-0.9); Monocytes % 8.3 %; Neutrophils # 3.53 10^3/uL (1.8-7.7); Nucleated Red Blood Cells % 0.5 %; Platelet Count 507 10^3/cmm (130-400); Red Blood Count 5.14 10^6/uL (4.1-5.3); Red Cell Distribution Width 17.6 % (12.1-15.1); White Blood Count 5.9 10^3/uL (4.0-10.0)
[2020-07-03 06:13] LABS: Acetaminophen < 5.0 ug/mL (10-30); Alanine Aminotransferase 107 U/L (0-33); Albumin Level 4.2 g/dL (3.5-5.2); Alcohol Level < 10 mg/dL (0-10); Alkaline Phosphatase 121 IU/L (35-105); Anion Gap 13.1 (5-19); Aspartate Amino Transferase 22 U/L (0-32); Blood Urea Nitrogen 9 mg/dL (6-20); Calcium 9.1 mg/dL (8.5-10.5); Carbon Dioxide 23 mmol/L (22-29); Chloride 106 mmol/L (98-107); Globulin 2.4 g/dL (1.3-4.6); Glomerular Filtration Rate 174.2 mL/min (90-130); Glucose 101 mg/dL (65-115); Lipase 66 U/L (13-60); Osmolality Calculated 285 mOsm/kg (285-295); Potassium 4.1 mmol/L (3.5-5.1); Salicylate < 0.3 mg/dL (3-10); Sodium 138 mmol/L (136-145); Total Bilirubin 0.7 mg/dL (0.15-1.2); Total Protein 6.6 g/dL (6.6-8.7)
[2020-07-03 06:22] VITALS: BP 116/78; PULSE 76; RESP 18; O2SAT 96
[2020-07-03 06:25] LABS: Creatine Phosphokinase 82 U/L (26-192)
[2020-07-03 06:46] LABS: HCG, Serum Qual Negative (Negative)
[2020-07-03 06:54] LABS: Magnesium 2.2 mg/dL (1.7-2.3)
[2020-07-03 06:59] LABS: Add Urine Microscopic? NO
[2020-07-03 07:07] LABS: Urine Appearance Clear (CLEAR); Urine Color Yellow (Yellow)
[2020-07-03 07:08] LABS: Bilirubin Urine Neg (Negative); Blood Urine Neg (Negative); Glucose Urine UA Norm (Normal); Ketones Urine Negative (Negative); Leukocyte Esterase Urine Negative (Negative); Nitrate Urine Negative (Negative); Protein Urine Neg (Negative); Urobilinogen Urine Norm (Negative); pH Urine 5 (5-7)
[2020-07-03 07:16] LABS: Amphetamines Screen Urine Positive (Negative); Barbiturates Screen Urine Negative (Negative); Benzodiazepines Screen Urine Negative (Negative); Cocaine Screen Urine Negative (Negative); Opiate Screen Urine Negative (Negative); PCP Screen Urine Negative (Negative); THC Screen Urine Positive (Negative)
[2020-07-03 07:21] LABS: Influenza A by IFA Negative (Negative); Influenza B by IFA Negative (Negative)
[2020-07-03 07:22] LABS: SARS Covid-2 Antigen Negative (Negative)
[2020-07-03 07:39] VITALS: PULSE 93; O2SAT 97
== END 2020-07-03 07:41 | disposition home or self-care (01) ==
PROVIDERS: Emergency Medicine; Emergency Provider Emergency Medicine
DX: B34.9 Viral infection, unspecified (principal)
CPT/HCPCS: 12345; 80053; 80306; 80307; 81003; 82550; 83690; 83735; 84703; 85025; 87426; 87804; 96361; 96374; 96375; 99282; 99283; J2405; J7030

== ENCOUNTER 2024-09-03 16:32 | Emergency (ER) | payer OTHER, SELFPAY ==
[2024-09-03 16:44] VITALS: BP 101/66; PULSE 83; RESP 17; TEMP 36.8; O2SAT 97; BMI 22.1
--- NOTE | 2024-09-03 17:18 | ED_ITS ---
HPI - Back Pain/Injury General: Chief Complaint: Back Pain/Injury Stated Complaint: right side lower back Time Seen by Provider: 09/03/24 16:37 Source: patient Mode of arrival: ambulatory Limitations: no limitations History of Present Illness: Patient is a 49-year-old female presents to ED today with complaint of right sided back pain. Patient states yesterday she was lifting heavy maria t/she works at a [employer] company when she felt something pop to the right side of her back. Patient states since then, she has had pain with pivoting, lifting, walking, movement. She feels like pain radiates down into her right buttock and down the posterior aspect of her right thigh. He is not having any saddle anesthesia. She has not had any episodes of urinary/bladder incontinence/retention. MD elicited complaint: back pain Onset (ago): day(s) Timing: constant Severity: severe Pain scale (0-10): 8 Similar Symptoms Previously: No Quality: burning Location: right lower back Radiation: buttocks and right upper leg Exacerbating factors: movement, walking and lifting Relieving factors: none Context: while lifting Associated symptoms: Reports no associated symptoms; Deny abdominal pain, chills, dysuria, fatigue, fecal incontinence, fever(s) or hematuria Work related injury: Yes Related Data Previous Rx's Medication Instructions Recorded cephalexin 750 mg capsule 750 mg PO Q12H 10 days #20 caps 12/26/20 diclofenac sodium 50 mg 50 mg PO Q12H PRN pain #20 tabs 09/03/24 tablet,delayed release methocarbamol 500 mg tablet 1,000 mg (2 x 500 mg) PO Q8H #30 09/03/24 tabs methylprednisolone 4 mg tablets in See Rx Instructions PO .COMPLEX 09/03/24 a dose pack (Medrol (Forrest)) #21 ea Allergies Allergy/AdvReac Type Severity Reaction Status Date / Time butorphanol [From Stadol] Allergy ALGY-Difficulty Verified 12/26/20 14:20 Breathing Review of Systems Const: Denies: fever(s), chills, body aches, fatigue or malaise Card: Denies: chest pain Resp: Denies: dyspnea GI: Denies: abdominal pain, constipation or fecal incontinence : Denies: flank pain, dysuria, urinary incontinence or hematuria Musc: Reports: back pain; Denies: neck pain, extremity pain, extremity swelling, joint pain or joint swelling Skin/Breast: Denies: rash Neuro: Denies: numbness in extremities, weakness in extremities or sensory changes PFSH ED PFSH: Social History Smoking and tobacco/nicotine status: current every day tobacco/nicotine user Physical Exam Const: COMMON NORMALS: no acute distress, average body habitus, patient oriented x3, no limitations, healthy appearing, alert and well nourished Neck/C-Spine: COMMON NORMALS: full ROM and no meningeal signs Resp: COMMON NORMALS: normal respiratory effort Cardio: COMMON NORMALS: regular rate and regular rhythm RATE: regular rate RHYTHM: regular rhythm GI: COMMON NORMALS: Normal to inspection, nondistended, normoactive bowel sounds present, non-tender and no masses : COMMON NORMALS: Yes no CVA tenderness BLADDER/KIDNEY EXAM: Yes no CVA tenderness Back/Pelvis: COMMON NORMALS: no CVA tenderness, thoracic and lumbar spine normal to inspection, no thoracic nor lumbar tenderness and straight leg raise negative bilaterally LUMBAR SPINE/LOWER BACK: No lumbar spinal tenderness, Yes paraspinal muscle tenderness Lumbar paraspinal muscle tenderness: right and No mass present PELVIS: Yes sciatic notch tenderness on the right SACRUM: no tenderness COCCYX: no tenderness Extremity: COMMON NORMALS: capillary refill normal, no clubbing, cyanosis or edema, no calf tenderness and no pedal edema GENERAL: Yes normal exam except as noted Neuro: COMMON NORMALS: patient oriented x3, moves all extremities, no focal motor deficits and no sensory deficits noted SENSORIUM/ORIENTATION: Yes alert MENINGEAL SIGNS: Yes no meningeal signs GAIT: Yes Normal gait present MOTOR EXAM: 5/5 motor strength present throughout Skin: COMMON NORMALS: no rashes or lesions noted GENERAL SKIN EXAM: no rashes or lesions noted Course Vital Signs: Vital signs: Vital Signs Temperature 98.2 F 09/03/24 16:44 Pulse Rate 83 09/03/24 16:44 Respiratory Rate 17 09/03/24 17:39 Blood Pressure 101/66 09/03/24 16:44 Pulse Oximetry 97 09/03/24 16:44 Oxygen Delivery Me thod Room Air 09/03/24 16:44 MDM - Back Pain/Injury Medical Decision Making Patient feeling significantly better after IM medications. She has no acute neurologic deficits by history or physical examination. Patient is stable to follow-up with her primary care provider next week. Return to the ED precautions discussed. No radiology studies performed this visit Discharge Plan Discharge Patient Disposition: Home Clinical Impression: Sciatic leg pain Condition: Stable Prescriptions: New methocarbamol 500 mg tablet 1,000 mg PO Q8H Qty: 30 0RF diclofenac sodium 50 mg tablet,delayed release (DR/EC) 50 mg PO Q12H PRN (Reason: pain) Qty: 20 0RF methylprednisolone [Medrol (Forrest)] 4 mg tablets,dose pack See Rx Instructions .ROUTE .COMPLEX Qty: 21 0RF Rx Instructions: orally per package directions No Action cephalexin 750 mg capsule 750 mg PO Q12H 10 Days Qty: 20 0RF Discharge Orders: Discharge ED (Routine); Ordered 09/03/24 Ordered By: Sandra Fisher Patient Instructions: Sciatica (ED), Lumbar Radiculopathy (ED), Sciatica Activity Restrictions/Additional Instructions: As we discussed, please follow-up with primary care in 1 to 2 weeks so they can reassess symptoms for improvement. Stand Alone Forms: Work/School Release Coding Level of Care Code ED Business Transformation Analyst for Kaitlynn Norris
[2024-09-03 17:39] VITALS: RESP 17
[2024-09-03] MEDS: dexamethasone 10 mg/mL INJ 8 MG IM (17:39)
[2024-09-03] MEDS: ketorolac 60 mg/2 mL INJ IM (17:39)
[2024-09-03] MEDS: orphenadrine 30 mg/mL Inj 2 mL 60 MG IM (17:39)
[2024-09-03] MEDS: morphine 4 mg/mL SDV 1 mL IM (17:39)
[2024-09-03 18:28] VITALS: BP 110/63; PULSE 67; O2SAT 99
== END 2024-09-03 18:29 | disposition home or self-care (01) ==
PROVIDERS: Emergency Provider Physician Assistant
DX: M54.31 Sciatica, right side (principal); Z72.0 Tobacco use
CPT/HCPCS: 96372; 99284; J1100; J1885; J2270; J2360

== ENCOUNTER 2025-03-23 23:05 | Emergency (ER) | payer BC, MEDICAID, SELFPAY ==
[2025-03-23 23:18] VITALS: BP 113/77; PULSE 87; RESP 16; TEMP 36.8; O2SAT 98; BMI 21.9
--- NOTE | 2025-03-23 23:19 | XRR_ITS ---
PROCEDURE INFORMATION: Exam: XR Left Wrist Exam date and time: 03/23/2025 11:29 PM Age: 49 years old Clinical indication: Injury or trauma; Fall; Blunt trauma (contusions or hematomas); Wrist; Left TECHNIQUE: Imaging protocol: Radiologic exam of the left wrist. Views: 3 or more views. COMPARISON: No relevant prior studies available. FINDINGS: Bones/joints: No acute fracture. Normal joint alignment. Soft tissues: Normal. XR/XR wrist LT min 3V* [id number] IMPRESSION: No acute osseous abnormality.If there is anatomic snuffbox tenderness, recommend immobilization and follow-up radiographs in 7-14 days.
--- OUTSIDE RECORDS SUMMARY | 2025-03-23 23:20 | XMS_ITS | Clinical Summary ---
Author Organization [facility] Address [address] Attn: Epic Prelude ADT [place] [address] Care Team Providers Care Laborer Hoisting Name Role Phone Mica Rush Primary Care Provider [phone] Allergies Active Allergy Reactions Criticality Noted Date Comments Butorphanol Tartrate Other (See Comments) 11/06 Collapsed lungs Medications albuterol sulfate HFA 90 mcg/actuation aerosol inhalerIndication s:Mixed simple and mucopurulent chronic bronchitis (CMS/HCC) Take 2 Puffs by inhalation every 6 hours as needed for Shortness of Breath. 8.5 Gram 3 5 Active ipratropium-albut Treasure (DUONEB) 0.5 mg-3 mg(2.5 mg base)/3 mL Solution for NebulizationIndic ations:Mixed simple and mucopurulent chronic bronchitis (CMS/HCC) Take 3 mL by inhalation every 6 hours as needed for Shortness of Breath. 90 Each 2 5 Active nebulizerIndicati ons:Mixed simple and mucopurulent chronic bronchitis (CMS/HCC) Length of need 99 months Nebulizer with compressor, Kit: Disposable Nebulizer Kit, 2 per month, filters , areosol mask: No. Name of Medication: Duoneb 1 Each Active Active Problems Problem Noted Date Diagnosed Date Mixed simple and mucopurulent chronic bronchitis 08/18/2024 Beta thalassemia 08/29/2014 Encounters Date Type Department Care Team Description 03/10/2025 External Device Data [facility] ABSTRACTION Provider, Abstract 03/09/2025 External Device Data [facility] Provider, Abstract 02/02/2025 External Device Data [facility]CTION Provider, Abstract 01/05/2025 External Device Data [facility]CTION Provider, Abstract 01/05/2025 External Device Data [facility]CTION Provider, Abstract 01/05/2025 External Device Data [facility] ABSTRACTION Provider, Abstract from Last 3 Months Immunizations Immunization Administration Dates Next Due INFLUENZA VACCINE TRIVALENT SPLIT VIRUS, (6 MOS UP), 0.5ML (PF), IM 05/18/2024 Social History Tobacco Use Types Packs/Day Years Used Date Smoking Tobacco: Every Day Passive Smoke Exposure: Current Smokeless Tobacco: Never Tobacco Cessation:Ready to Q uit: No; Counseling Given: Yes Alcohol Use Standard Drinks/Week Comments Not Currently 0 (1 standard drink = 0.6 oz pur e alcohol) Comments No Sex and Gender Information Value Date Recorded Sex Assigned at Not on file Legal Sex 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 Gender Identity Not on file Sexual Orientation Not on file Last Filed Vital Signs Vital Sign Reading Time Taken Comments Blood Pressure 112/72 12/08/2024 7:45 PM CDT Pulse 75 12/08/2024 7:45 PM CDT Temperature 36.3 C (97.3 F) 12/08/2024 7:09 PM CDT Respiratory Rate 16 12/08/2024 7:45 PM CDT Oxygen Saturation 100% 12/08/2024 7:45 PM CDT Inhaled Oxygen Concentration - - Weight 55.2 kg (121 lb 12.8 oz) 12/08/2024 7:09 PM CDT Height 160 cm (5' 3 ) 12/08/2024 7:09 PM CDT Body Mass Index 21.58 12/08/2024 7:09 PM CDT Plan of Treatment Health Maintenance Due Date Last Done Comments HEPATITIS B VACCINES (1 of 3 - 19+ 3-dose series) 02/1996 HPV/Cotest (21-29) 1998 CERVICAL CANCER SCREENING 2007 HPV/Cotest (30-65) 2007 PAP SMEAR 2007 DTAP/TDAP/TD VACCINES (1 - Tdap) 07/21/2009 07/20/20 09 BREAST CANCER SCREENING 2017 COLORECTAL SCREENING 2022 FIT/FOBT Q 1 year 2022 Flex Sig/CT Colonography Q 5 years 2022 COVID-19 Vaccine ( season) 2024 Preventative Visit- Commercial 08/05/2024 INFLUENZA VACCINE (#1) 2025 05/18/2024 Colorectal Cancer Screening 06/23/2027 FIT-DNA Q 3 years 06/23/2027 06/23/2024 Procedures Procedure Name Priority Date/Time Associated Diagnosis Comments COLON CANCER SCREEN, STOOL DNA Routine 06/23/2024 1:00 AM 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 The patient will be contacted to initiate a new sample collection. Stool STOOL SPECIMEN / Unknown 06/23/2024 1:00 AM PSYCHOTHERAPIST SOCIAL WORKER 06/26/2024 7:10 PM PSYCHOTHERAPIST SOCIAL WORKER November GASKET W[employer]ER BODY FLUIDS AND STOOLS Final Res ult [facility] CLIA # [id number] [address] , [address] [place] [address] from Last 3 Months or Most Recently Relevant to Health Maintenance Insurance [facility] Care Teams Laborer Hoisting Relationship Specialty Start Date End Date Mica Rush DO [address] [place] [id number] PCP - General Family Practice 08/18/24
[2025-03-23 23:32] VITALS: BP 109/77; O2SAT 99
--- NOTE | 2025-03-23 23:57 | W.ED.FALL ---
HPI - Fall General: Chief Complaint: Fall Stated Complaint: Left Wrist Injury Time Seen by Provider: 03/23/25 23:17 History of Present Illness: Patient is a 49-year-old female presents to the ED after a fall and left wrist contusion. This occurred just prior to arrival. She stated that she fell on a wet deck, and slipped down the stairs, with her left arm under her left hip. She complains of pain in her left wrist. Denies any other change other than 9 superficial laceration to the left lateral anterior portion that occurred earlier today that is not related. Associated symptoms-after fall: Denies abdominal pain, chest pain, headache(s) or neck pain Related Data Previous Rx's ?Medication ?Instructions ?Recorded cephalexin 750 mg capsule 750 mg PO Q12H 10 days #20 caps 12/26/20 diclofenac sodium 50 mg 50 mg PO Q12H PRN pain #20 tabs 09/03/24 tablet,delayed release methocarbamol 500 mg tablet 1,000 mg (2 x 500 mg) PO Q8H #30 09/03/24 tabs methylprednisolone 4 mg tablets in See Rx Instructions PO .COMPLEX 09/03/24 a dose pack (Medrol (Forrest)) #21 ea Allergies Allergy/AdvReac Type Severity Reaction Status Date / Time butorphanol (From Stadol) Allergy ALGY-Difficulty Verified 12/26/20 14:20 Breathing Review of Systems Const: Denies: fever(s) or chills ENMT: Denies: throat pain, dental pain or dry mouth Card: Denies: chest pain or palpitations Resp: Denies: dyspnea or productive cough GI: Denies: abdominal pain or nausea : Denies: flank pain or difficulty voiding Musc: Reports: extremity pain and joint pain; Denies: neck pain, back pain or extremity swelling Neuro: Denies: headache(s), numbness in extremities or sensory changes Psych: Denies: anxiety or depression PFS ED PFSH: Social History Smoking and tobacco/nicotine status: current every day tobacco/nicotine user Physical Exam Const: COMMON NORMALS: no acute distress, average body habitus, patient oriented x3 and no limitations HENMT: COMMON NORMALS: normocephalic and atraumatic HEAD & SCALP: normocephalic and atraumatic FACE & SINUS: normal facial exam Neck/C-Spine: COMMON NORMALS: full ROM and no lymphadenopathy Lymph: LYMPHATIC: no lymphadenopathy noted Chest: COMMONS NORMALS: normal inspection of the chest and normal palpation of entire chest wall Resp: COMMON NORMALS: normal respiratory effort, No retractions and No use of accessory muscles Cardio: COMMON NORMALS: regular rate and regular rhythm RATE: regular rate RHYTHM: regular rhythm GI: COMMON NORMALS: Normal to inspection, nondistended, normoactive bowel sounds present and Soft to palpation PALPATION: Yes Soft to palpation : COMMON NORMALS: Yes no CVA tenderness BLADDER/KIDNEY EXAM: Yes no CVA tenderness Back/Pelvis: COMMON NORMALS: no CVA tenderness Extremity: COMMON NORMALS: capillary refill normal LEFT UPPER EXTREMITY: Yes wrist Left wrist: Yes palpation (Mild anatomical snuffbox tenderness, no axial load tenderness.), Yes ROM (decreased due to pain), Yes neurovascular exam (intact) and Yes special tests and Yes hand & digits Left hand and digits: Yes special tests Left hand special tests: Trapeziometacarpal Joint Grind test: Negative Neuro: COMMON NORMALS: patient oriented x3 Psych: COMMON NORMALS: mental status grossly normal, Normal thought process present and cooperative THOUGHT PROCESS: Normal thought process present Course Vital Signs: Vital signs: Vital Signs Temperature 98.3 F 03/23/25 23:18 Pulse Rate 87 03/23/25 23:18 Respiratory Rate 16 03/23/25 23:18 Blood Pressure 109/77 03/23/25 23:32 Pulse Oximetry 99 03/23/25 23:32 Oxygen Delivery Me thod Room Air 03/23/25 23:32 MDM - Fall Medical Decision Making Patient is a pleasant 49-year-old female that presents with acute injury to left wrist. She does have a slight amount of anatomical snuffbox tenderness, however no axial load tenderness. Patient be placed in a cock up splint/wrist splint, and advised to follow-up with her primary care physician in 7-14 days for lory-ray. On our x-ray at this time it is negative. Since exam is inconsistent, we will have her follow-up for repeat x-rays as discussed with her. Patient will utilize Tylenol, and ibuprofen for pain. Medical Records I reviewed the patient's medical records. Lab Data Radiology Impressions Wrist X-Ray 03/23/25 23:19 IMPRESSION: No acute osseous abnormality.If there is anatomic snuffbox tenderness, recommend immobilization and follow-up radiographs in 7-14 days. All radiology interpretation(s) finalized by discharge ED provider radiology interpretation(s): no acute changes Discharge Plan Discharge Patient Disposition: Home Clinical Impression: Contusion of left wrist, initial encounter Condition: Stable Prescriptions: No Action cephalexin 750 mg capsule 750 mg PO Q12H 10 Days Qty: 20 0RF methocarbamol 500 mg tablet 1,000 mg PO Q8H Qty: 30 0RF diclofenac sodium 50 mg tablet,delayed release (DR/EC) 50 mg PO Q12H PRN (Reason: pain) Qty: 20 0RF methylprednisolone [Medrol (Forrest)] 4 mg tablets,dose pack See Rx Instructions .ROUTE .COMPLEX Qty: 21 0RF Rx Instructions: orally per package directions Discharge Orders: Discharge ED (Routine); Ordered 03/24/25 Ordered By: Maddy Paul Discharge Diet: Usual diet Discharge Activity: Resume usual activity Patient Instructions: Wrist Injury (ED), Patient Portal & [facility] Instructions Activity Restrictions/Additional Instructions: You will need to follow-up with your doctor in 7-14 days to repeat these x-rays and have this reevaluated to confirm it does not have a fracture. As we discussed, at this time it does not have a fracture on x-ray, however it is important to keep in an immobilizer. Tylenol and ibuprofen for pain. Sometimes, wrist fractures are hard to see initially if they are hairline. This is better seen on your follow-up. Wear your immobilizer at all times except for shower. Return to ED for emergency visit. Call your primary tomorrow to follow-up in that 7-14 days. Print Language: [place] Coding Level of Care Code ED Repair Service Dispatcher for Kaitlynn Norris
== END 2025-03-24 00:26 | disposition home or self-care (01) ==
PROVIDERS: Emergency Provider Physician Assistant
DX: S60.212A Contusion of left wrist, initial encounter (principal); Z72.0 Tobacco use; W10.9XXA Fall (on) (from) unspecified stairs and steps, initial encounter
CPT/HCPCS: 73110; 99283